=== PATIENT | male | born 1945 | race Caucasian/White ===

== ENCOUNTER 2022-05-19 09:20 | Inpatient (IN) ==
[2022-05-19] MEDS ORDERED: CHLOROTHIAZIDE SODIUM 250 MG in DEXTROSE 5% 50 ML IV STA (10:29)
--- NOTE | 2022-05-19 10:39 | XRay Report ---
XR chest 1V portable HISTORY: Weakness. Leg swelling. CHF exacerbation COMPARISON: Chest 06/20/2014. FINDINGS: No pneumothorax. There are low lung volumes. The cardiac silhouette remains mildly enlarged . There is a partially visualized left shoulder prosthesis. Advanced degenerative changes noted withi n the right shoulder. There is interval progression of the diffuse interstitial and vascular thickeni ng consistent with developing pulmonary edema. Suspect trace bilateral pleural effusions. Patchy dens ities at the left lung base are noted. IMPRESSION: 1. Cardiomegaly with mild pulmonary edema and trace bilateral pleural effusions. 2. Patchy left basilar densities are nonspecific and may represent atelectasis or pneumonia. ACT 112: Negative or not required by law. Electronically signed by: Dereck Troncoso M.D. 05/19/2022 10:37 AM
--- NOTE | 2022-05-19 10:49 | History & Physical Report ---
Date of Service May 19, 2022 Assessment & Plan (1) Chronic diastolic CHF (congestive heart failure): (2) Hypertension: (3) Dyslipidemia: (4) CAD (coronary artery disease): (5) DVT (deep venous thrombosis): (6) Anemia: (7) Leukocytosis: (8) Fungal infection of foot: Plan Mr. Leeroy Pickett is a 77 year old male who presented to the [facility] ED from home after discussion regarding admission at his outpatient Cardiology appointment yesterday (May 18) with Dr. Diaz. This individual has acute on chronic CHF and has not been clinically responding to his outpatient diuretic regimen as noted by his significant edema and weight gain. acute on chronic dystolic CHF with preserved EF: -Patient primarily seen as an outpatient. Had an appointment yesterday with Dr. Diaz and was noted to be hypervolemic. -+ 3 B/L LE edema -Last ECHO 02/18 EF 50%, mild MR/TR -mild pulmonary edema on CXR -Typical home regiment includes PO Bumex with intermittent PO Lasix in addition to that. -One time dose of Diuril IV 250 mg per [facility] recommendation -Bumex 4mg IV Once post Diuril infusion; followed by Bumex 4mg IV BID -Heart healthy diet with low Na+ -Check daily weights -Strict I/O; goal is 1-2L negative net fluid over next 24 hours. -Discussed with Dr. Santiago who agrees with above orders and is aware of consultation being placed. -Pt stated he would consider being evaluated and followed by the CHF clinic. Consider consult during this admission. Hypertension: -Continue Metoprolol with hold parameters Dyslipidemia: -Continue Atorvastatin CAD: -Previous OK DVT: -02/05/2021 admission at [facility] for PE/DVT -Eliquis started during that admission for chronic VTE prophylaxis Leukocytosis: -WBC: 11.91 -UA pending -no tachycardia or other signs of sepsis -Will obtain repeat CBC tomorrow with AM labs -CXR did reveal pulmonary effusions; likely fluid related. Fungal Infection of foot: -bilateral foot fungal infection. Continue prescribed Terbinafine 250mg PO daily which is scheduled to continue treatment through 06/23/22 Anemia: -Appears stable Current 11.3 Disposition: Pt PCP: Dr. Mcgill Full code as discussed with patient We will follow the patient during their hospital stay. Please contact the [facility] Hospitalist Team 23/05 via the hospitalist role on [place] [employer]. History of Present Illness Chief Complaint: Referred by [facility] cardiology Primary Care Provider: Elan Mcgill MD Mr. Leeroy Pickett is a 77 year old male who presented to the [facility] ED from home after discussion regarding admission at his outpatient Cardiology appointment yesterday (May 18) with Dr. Diaz. This individual has acute on chronic CHF and has not been clinically responding to his outpatient diuretic regimen as noted by his significant edema and weight gain. Per review of his medication list, he is on high-dose Bumex and PRN Lasix 20 mg on top of that. Additional PMH includes: CAD s/p AMI, ischemic cardiomyopathy, HTN, HLD, BPH, DVT/PE in 01/2021 where he was admitted at [facility] leading to initiation of Eliquis. His most recent ECHO revealed EF of 50-59% with mild MR/TR. Pt presenting today to move ahead with hospital admission. During my encounter, patient he was accompanied by his , Pratibha and his son as well. The patient is resting in his bed, sitting upright in no apparent distress. He denies ROWLAND, dizziness, SOB at rest, CP, palpitations, N/V/D, falls. The patient did indicate that while he does not feel winded at rest, he would be considerably short of breath walking from his bed to the door. A chest X-ray was obtained and results indicated: mild pulmonary edema and trace bilateral pleural effusions. The patient is also being treated for a bilateral foot fungal infection with Terbinafine 250mg PO daily and is scheduled to continue treatment through 06/23/22. The patient lives with his in a one story ranch house and per the patient and his he is able to perform IADL's. The patient will be admitted for IV diuresis and closer laboratory monitoring. Please see A/P for further details regarding his admission. Allergies Allergy/AdvReac Type Severity Reaction Status Date / Time No Known Drug Allergies Allergy Verified 05/18/22 11:20 Home Medications Medication Instructions Recorded Confirmed Type aspirin 81 mg tablet 81 mg PO DAILY 09/07/19 05/19/22 History metolazone 2.5 mg tablet 2.5 mg PO DAILY PRN weight gain, 01/06/21 05/19/22 Rx increased swelling, short of breath #15 tabs apixaban 5 mg tablet (Eliquis) 5 mg PO BID 02/17/21 05/19/22 History finasteride 5 mg tablet 5 mg PO QPM 03/03/21 05/19/22 History lactulose 10 gram/15 mL oral 15 ml PO BID 03/03/21 05/19/22 History solution lisinopril 5 mg tablet 5 mg PO DAILY #90 tabs 09/14/21 05/19/22 Rx tamsulosin 0.4 mg capsule (Flomax) 0.4 mg PO DAILY 10/09/21 05/19/22 History isosorbide mononitrate 30 mg 30 mg PO DAILY #90 tabs 12/24/21 05/19/22 Rx tablet,extended release 24 hr atorvastatin 40 mg tablet 40 mg PO DAILY #90 tabs 02/24/22 05/19/22 Rx metoprolol succinate 25 mg 25 mg PO DAILY #90 tabs 02/24/22 05/19/22 Rx tablet,extended release 24 hr potassium chloride 20 mEq 20 meq PO DAILY #90 tabs 05/07/22 05/19/22 Rx tablet,extended release allopurinol 300 mg tablet 300 mg PO DAILY 05/18/22 05/19/22 History bumetanide 2 mg tablet 4 mg PO BID 05/18/22 05/19/22 History terbinafine HCl 250 mg tablet 250 mg PO DAILY 05/18/22 05/19/22 History Past Med/Surg History Medical History (Updated 05/19/22 @ 13:19 by ANTHONY Wadsworth) Aortic insufficiency CAD (coronary artery disease) Chronic diastolic CHF (congestive heart failure) DVT (deep venous thrombosis) Dyslipidemia Fungal infection of foot Hypertension Ischemic cardiomyopathy Leukocytosis Pre-diabetes Pulmonary emboli Surgical History History of bilateral carpal tunnel release History of total replacement of left shoulder joint Hx of cardiac cath 1990s, no stents placed Hx of hernia repair Family History Mother , 82 Alzheimer disease Father , 90s Thoracic aneurysm, ruptured Brother Colorectal cancer Sister Colorectal cancer Social History Smoking Status: Former smoker packs per day: 1; Years Smoked: 20; Cigarettes Per Day: 20; Hx Alcohol Use: No Hx Substance Use: No Preferred Language: Maori Communication Ability: Effective marital status: current occupational status: retired Feels Safe at Home: Yes Review of Systems Review of Systems: Neuro: Denies ROWLAND, dizziness. HEENT: Denies visual and hearing changes, dysphagia CV: Denies chest pain, palpitations. + swelling Resp: Denies SOB at rest GI: Denies abdominal pain, N/V/D : (-) urinary changes Psych: (-) anxiety, depression Physical Exam Constitutional: well developed, + obese, cooperative and comfortable; no altered mental status ENMT: Ears: + hearing impairment (Uses hearing aids B/L) Nose: + dry nasal mucous membranes Respiratory: normal respiratory effort; does not use accessory muscles and no cough Auscultation: + diminished lung sounds Cardiovascular: Rate/Rhythm: regular rate and regular rhythm Heart Sounds: normal S1 and normal S2 Vessels: + JVD Extremities: + edema (B/L LE +3 ) Gastrointestinal (Abdomen): Inspection/Auscultation: abdomen normal to inspection, + abdomen distended and normal bowel sounds Skin: + erythema and + pallor Pt has fungal infection on his feet Psychiatric: Orientation: alert and oriented x 3 Insight: good insight Judgement: good judgement Genitourinary: no CVA tenderness Results & Data Results & Data ([facility]) Vital Signs (Past 12 Hours) Vital Signs Temp Pulse Resp BP Pulse Ox O2 Del Method 05/19/22 09:27 36.4 C L 89 20 127/70 95 Room Air Laboratory Results Impressions Chest X-Ray 05/19/22 10:01 XR chest 1V portable HISTORY: Weakness. Leg swelling. CHF exacerbation COMPARISON: Chest 06/20/2014. FINDINGS: No pneumothorax. There are low lung volumes. The cardiac silhouette remains mildly enlarged. There is a partially visualized left shoulder prosthesis. Advanced degenerative changes noted within the right shoulder. There is interval progression of the diffuse interstitial and vascular thickening consistent with developing pulmonary edema. Suspect trace bilateral pleural effusions. Patchy densities at the left lung base are noted. IMPRESSION: 1. Cardiomegaly with mild pulmonary edema and trace bilateral pleural effusions. 2. Patchy left basilar densities are nonspecific and may represent atelectasis or pneumonia. ACT 112: Negative or not required by law. Electronically signed by: Dereck Troncoso M.D. 05/19/2022 10:37 AM COVID-19 Results Results COVID-19 Adm Lab Results: RBC 4.01 M/uL (4.63-6.08) L 05/19/22 WBC 11.91 K/ul (4.8-10.8) H 05/19/22 Hgb 11.3 g/dl (14.0-18.0) L 05/19/22 Hct 34.5 % (40.1-51.0) L 05/19/22 Plt Count 288 K/uL (130-400) 05/19/22 Neutrophils (%) (Auto) 67.0 % 05/19/22 Lymphocytes (%) (Auto) 22.5 % 05/19/22 Monocytes # (Auto) 1.04 K/uL (0.24-0.82) H 05/19/22 Eosinophils # (Auto) 0.11 K/uL (0-0.50) 05/19/22 Immature Granulocyte % (Auto) 0.4 % 05/19/22 Neutrophils # (Auto) 7.97 K/uL (1.4-6.5) H 05/19/22 Lymphocytes # (Auto) 2.68 K/uL (1.2-3.4) 05/19/22 Monocytes # (Auto) 1.04 K/uL (0.24-0.82) H 05/19/22 Eosinophils # (Auto) 0.11 K/uL (0-0.50) 05/19/22 Basophils # (Auto) 0.06 K/uL (0-0.2) 05/19/22 Immature Granulocyte # (Auto) 0.05 K/uL (0.00-0.02) H 05/19 Na 135 mmol/L (136-145) L 05/19/22 K 4.3 mmol/L (3.5-5.1) 05/19/22 Cl 101 mmol/L (98-107) 05/19/22 CO2 28 mmol/L (21-32) 05/19/22 Anion Gap 6 (3-11) 05/19/22 BUN 22 mg/dl (6-23) 05/19/22 Creatinine 0.86 mg/dl (0.6-1.4) 05/19/22 BUN/Creatinine Ratio 25.6 (10-20) H 05/19/22 Glucose Level 112 mg/dl (70-99(Fasting)) H 05/19/22 Ca 8.7 mg/dl (8.5-10.1) 05/19/22 Total Bilirubin 0.6 mg/dl (0.2-1.0) 05/19/22 AST/SGOT 25 U/L (13-39) 05/19/22 ALT/SGPT 21 U/L (7-52) 05/19/22 Alkaline Phosphatase 101 U/L (34-104) 05/19/22 Total Protein 6.3 gm/dl (6.0-8.3) 05/19/22 Albumin 3.2 gm/dl (3.4-5.0) L 05/19/22 Globulin 3.1 gm/dl (2.5-4.0) 05/19/22 Albumin/Globulin Ratio 1.0 (0.9-2) 05/19/22 SARS-CoV-2, RNA, NAAT NEGATIVE (NEGATIVE) 05/19/22 Chest X-Ray 05/19/22 Code Status & VTE Plan Code Status Pt to remain Full Code after discussion with patient and family. Order reflected in computer. VTE Prophylaxis Plan VTE Prophylaxis will be ordered: Yes Supervising Physician Co-Signing Physician Notes And this is an attending cosign on her phone reports documentation please see the full dictation by CORNELIO following is a synopsis. Patient presenting after being sent by the patient's print graphic designer to receive IV diuretics. Patient with worsening fluid overload and shortness of breath with exertional activity. Currently denies any dyspnea at rest denies any chest pain palpitations fever chills nausea vomiting. Complains of worsening lower extremity edema. Denies any tingling sensation denies any pain otherwise. Head atraumatic chest diminished bilateral rate and rhythm. Abdomen soft patient obese. +2-3 lower extremity edema. IV diuretics I's and O's Daily weights.
[2022-05-19 11:16] LABS: Basophils # (auto) 0.06 K/uL (0-0.2); Basophils % (auto) 0.5 %; Eosinophils # (auto) 0.11 K/uL (0-0.50); Eosinophils % (auto) 0.9 %; Hematocrit (blood only) 34.5 % (40.1-51.0); Hemoglobin 11.3 g/dl (14.0-18.0); Immature Granulocytes # (auto) 0.05 K/uL (0.00-0.02); Immature Granulocytes % (auto) 0.4 %; Lymphocytes # (auto) 2.68 K/uL (1.2-3.4); Lymphocytes % (auto) 22.5 %; Mean Corpuscular Hemoglobin 28.2 pg (25.0-34.0); Mean Corpuscular Hgb Conc 32.8 g/dL (32.0-36.0); Mean Platelet Volume 8.9 fL (9.4-12.4); Monocytes # (auto) 1.04 K/uL (0.24-0.82); Monocytes % (auto) 8.7 %; Neutrophils # (auto) 7.97 K/uL (1.4-6.5); Platelet Count 288 K/uL (130-400); RDW Coefficient of Variation 17.2 % (11.5-14.5); Red Blood Count 4.01 M/uL (4.63-6.08); White Blood Count 11.91 K/ul (4.8-10.8)
[2022-05-19 11:48] LABS: Albumin Level 3.2 gm/dl (3.4-5.0); BUN Creatinine Ratio 25.6 (10-20); Bilirubin,Total 0.6 mg/dl (0.2-1.0); Calcium 8.7 mg/dl (8.5-10.1); Est GFR (African American) 95.6 ml/min; Est GFR (Non-African American) 82.5 ml/min; Globulin 3.1 gm/dl (2.5-4.0); Total Protein 6.3 gm/dl (6.0-8.3); Troponin I High Sensitivity 33.6 pg/ml (0-20)
[2022-05-19 12:00] LABS: Potassium 4.3 mmol/L (3.5-5.1)
--- NOTE | 2022-05-19 12:09 | Emergency Department Note ---
Impression & Plan Fluid overload, Chronic diastolic CHF (congestive heart failure), Acute dyspnea ED Provider Note CHIEF COMPLAINT: Fluid overload HISTORY OF PRESENT ILLNESS: This 77 yo male patient presents to the emergency department presents emergency department with complaints of fluid overload and weight gain. The patient was evaluated by his market research executive yesterday and noted to be about 40 pounds heavier than his dry weight by report. He was supposed to be admitted to the hospital yesterday but the hospital was on code flow. Patient states he has been can with his medications. He denies any recent fevers, chills, chest pain or shortness of breath while at rest. He notices shortness of breath primarily with any exertion. He is states he does sleep in a reclined position, but not flat in his bed. Patient is chronic anticoagulated secondary to a history of DVT/PE. REVIEW OF SYSTEMS: A review of systems was performed with positives and pertinent negatives listed in the history of present illness. 10 systems were reviewed and are otherwise negative. ALLERGIES: see below MEDICATIONS: see below PMH: see below SOCIAL HISTORY: see below DDx: Reactive airway disease, pneumonia, pneumothorax, COPD, CHF, infections, cardiac ischemia, pulmonary embolism, musculoskeletal, gastrointestinal, as well as other pathologies. PHYSICAL EXAM: Vital signs reviewed. General: Chronically ill-appearing 77-year-old male HEENT: No conjunctival injection or scleral icterus, PERRLA, neck supple. Moist mucous membranes Cardiovascular: Regular rate and rhythm, no extra sounds. Pulmonary: Clear to auscultation bilaterally, normal work of breathing. Abdomen: Soft, obese, nontender, nondistended, positive bowel sounds. Musculoskeletal: Atraumatic, 3-4+ pitting peripheral edema. Neurologic: Patient awake alert and oriented x 3, speech is clear Skin: Warm, dry, no rash EMERGENCY DEPARTMENT COURSE/MDM: Was evaluated and appeared to be in no significant distress. IV access was obtained and laboratory work done. The patient was placed on the cardiac technologist be likely in a sinus rhythm with a wide-complex which is new. Chest x-ray was performed and reveals pulmonary edema and cardiomegaly. She was medicated with Diuril as directed by cardiology. He will require hospitalization for diuresis with intravenous medications and cardiology consultation. Patient is aware of this plan and agrees. The hospitalist service has been consulted for admission and further management. The patient is aware of the plan and agrees. MONITORING: An order for cardiac monitoring was placed and the patient is noted to be in a sinus rhythm at 89 beats per minute. RADIOLOGY: See below EKG: Likely sinus rhythm with a wide QRS at 84 bpm. Left axis deviation and a right bundle branch block. Prolonged QTC at 522 with previous inferior lateral infarct. When compared to previous dated June 20, 2014, new right bundle branch block is noted DISPOSITION: Admission Past Med/Surg History Medical History Aortic insufficiency CAD (coronary artery disease) Chronic diastolic CHF (congestive heart failure) DVT (deep venous thrombosis) Dyslipidemia Fungal infection of foot Hypertension Ischemic cardiomyopathy Leukocytosis Pre-diabetes Pulmonary emboli Surgical History History of bilateral carpal tunnel release History of total replacement of left shoulder joint Hx of cardiac cath 1990s, no stents placed Hx of hernia repair Family History Mother , 82 Alzheimer disease Father , 90s Thoracic aneurysm, ruptured Brother Colorectal cancer Sister Colorectal cancer Social History Smoking Status: Never smoker packs per day: 1; Years Smoked: 20; Cigarettes Per Day: 20; Hx Alcohol Use: No Hx Substance Use: No Preferred Language: Nauruan Communication Ability: Effective Hardware Manager Required: No Beliefs That Will Affect Care: None marital status: Current Living Situation: Spouse Current Living Situation Comment: jenny current occupational status: retired How many Children do You have: 1 Feels Safe at Home: Yes Assistive Devices: Cane Allergies Allergies Allergy/AdvReac Type Severity Reaction Status Date / Time No Known Drug Allergies Allergy Verified 05/18/22 11:20 Home Meds Home Medications Medication Instructions Recorded Confirmed aspirin 81 mg tablet 81 mg PO DAILY 09/07/19 05/19/22 apixaban 5 mg tablet (Eliquis) 5 mg PO BID 02/17/21 05/19/22 finasteride 5 mg tablet 5 mg PO QPM 03/03/21 05/19/22 lactulose 10 gram/15 mL oral 15 ml PO BID 03/03/21 05/19/22 solution tamsulosin 0.4 mg capsule (Flomax) 0.4 mg PO DAILY 10/09/21 05/19/22 allopurinol 300 mg tablet 300 mg PO DAILY 05/18/22 05/19/22 bumetanide 2 mg tablet 4 mg PO BID 05/18/22 05/19/22 terbinafine HCl 250 mg tablet 250 mg PO DAILY 05/18/22 05/19/22 Previous Rx's Medication Instructions Recorded metolazone 2.5 mg tablet 2.5 mg PO DAILY PRN weight gain, 01/06/21 increased swelling, short of breath #15 tabs lisinopril 5 mg tablet 5 mg PO DAILY #90 tabs 09/14/21 isosorbide mononitrate 30 mg 30 mg PO DAILY #90 tabs 12/24/21 tablet,extended release 24 hr atorvastatin 40 mg tablet 40 mg PO DAILY #90 tabs 02/24/22 metoprolol succinate 25 mg 25 mg PO DAILY #90 tabs 02/24/22 tablet,extended release 24 hr potassium chloride 20 mEq 20 meq PO DAILY #90 tabs 05/07/22 tablet,extended release chlorothiazide 250 mg/5 mL oral 125 mg (2.5 mL) PO UD #237 mL 05/21/22 suspension (Diuril) Results & Data (ED) Vital Signs Vital Signs - 24 hr 05/19/22 09:27 05/19/22 11:22 Temperature 36.4 C L Temperature Source Oral Pulse Rate 89 Pulse Rate [Apical] 78 Respiratory Rate 20 18 Respiratory Effort / Characteristics Non-Labored Respiratory Depth Normal Blood Pressure 127/70 Blood Pressure [Right Arm] 113/62 Blood Pressure Mean 89 Blood Pressure Mean [Right Arm] 79 Blood Pressure Position [Right Arm] Lying Pulse Oximetry 95 96 Oxygen Delivery Method Room Air Room Air Sepsis Recent Fever Within 48 Hours No Sepsis New/Unexplained Change in Mental Status No Sepsis Action Taken by Nursing No Action Required Home Medications Current Medication List: was personally reviewed by me Laboratory Data Attestation: I reviewed the patient's lab results. Result diagrams: 05/21/22 07:22 05/21/22 10:21 Lab Results 05/19/22 05/19/22 05/19/22 Range/Units 10:55 10:55 10:55 WBC 11.91 H (4.8-10.8) K/ul RBC 4.01 L (4.63-6.08) M/uL Hgb 11.3 L (14.0-18.0) g/dl Hct 34.5 L (40.1-51.0) % MCV 86.0 (80.0-100.0) fL MCH 28.2 (25.0-34.0) pg MCHC 32.8 (32.0-36.0) g/dL RDW Std Deviation 52.0 H (36.4-46.3) fL RDW Coeff of Carroll 17.2 H (11.5-14.5) % Plt Count 288 (130-400) K/uL MPV 8.9 L (9.4-12.4) fL Immature Gran % (Auto) 0.4 % Neut % (Auto) 67.0 % Lymph % (Auto) 22.5 % [place] % (Auto) 8.7 % Eos % (Auto) 0.9 % Baso % (Auto) 0.5 % Neut # (Auto) 7.97 H (1.4-6.5) K/uL Lymph # (Auto) 2.68 (1.2-3.4) K/uL [place] # (Auto) 1.04 H (0.24-0.82) K/uL Eos # (Auto) 0.11 (0-0.50) K/uL Baso # (Auto) 0.06 (0-0.2) K/uL Immature Gran # (Auto) 0.05 H (0.00-0.02) K/uL Sodium 135 L (136-145) mmol/L Potassium 4.3 (3.5-5.1) mmol/L Chloride 101 (98-107) mmol/L Carbon Dioxide 28 (21-32) mmol/L Anion Gap 6 (3-11) BUN 22 (6-23) mg/dl Creatinine 0.86 (0.6-1.4) mg/dl Est Cr Clr Drug Dosing 97.0 ml/min Est GFR ( Amer) 95.6 ml/min Est GFR (Non-Af Amer) 82.5 ml/min BUN/Creatinine Ratio 25.6 H (10-20) Glucose 112 H (70-99(Fasting)) mg/dl Calcium 8.7 (8.5-10.1) mg/dl Total Bilirubin 0.6 (0.2-1.0) mg/dl AST 25 (13-39) U/L ALT 21 (7-52) U/L Alkaline Phosphatase 101 (34-104) U/L Troponin I High Sens 33.6 H (0-20) pg/ml B-Natriuretic Peptide 115 H (0-100) pg/ml Total Protein 6.3 (6.0-8.3) gm/dl Albumin 3.2 L (3.4-5.0) gm/dl Globulin 3.1 (2.5-4.0) gm/dl Albumin/Globulin Ratio 1.0 (0.9-2) SARS-CoV-2, RNA, NAAT (NEGATIVE) 05/19/22 Range/Units 11:26 WBC (4.8-10.8) K/ul RBC (4.63-6.08) M/uL Hgb (14.0-18.0) g/dl Hct (40.1-51.0) % MCV (80.0-100.0) fL MCH (25.0-34.0) pg MCHC (32.0-36.0) g/dL RDW Std Deviation (36.4-46.3) fL RDW Coeff of Carroll (11.5-14.5) % Plt Count (130-400) K/uL MPV (9.4-12.4) fL Immature Gran % (Auto) % Neut % (Auto) % Lymph % (Auto) % [place] % (Auto) % Eos % (Auto) % Baso % (Auto) % Neut # (Auto) (1.4-6.5) K/uL Lymph # (Auto) (1.2-3.4) K/uL [place] # (Auto) (0.24-0.82) K/uL Eos # (Auto) (0-0.50) K/uL Baso # (Auto) (0-0.2) K/uL Immature Gran # (Auto) (0.00-0.02) K/uL Sodium (136-145) mmol/L Potassium (3.5-5.1) mmol/L Chloride (98-107) mmol/L Carbon Dioxide (21-32) mmol/L Anion Gap (3-11) BUN (6-23) mg/dl Creatinine (0.6-1.4) mg/dl Est Cr Clr Drug Dosing ml/min Est GFR ( Amer) ml/min Est GFR (Non-Af Amer) ml/min BUN/Creatinine Ratio (10-20) Glucose (70-99(Fasting)) mg/dl Calcium (8.5-10.1) mg/dl Total Bilirubin (0.2-1.0) mg/dl AST (13-39) U/L ALT (7-52) U/L Alkaline Phosphatase (34-104) U/L Troponin I High Sens (0-20) pg/ml B-Natriuretic Peptide (0-100) pg/ml Total Protein (6.0-8.3) gm/dl Albumin (3.4-5.0) gm/dl Globulin (2.5-4.0) gm/dl Albumin/Globulin Ratio (0.9-2) SARS-CoV-2, RNA, NAAT NEGATIVE (NEGATIVE) Administered Medications Discontinued Medications Acetaminophen (Acetaminophen 325 Mg Tab) 650 mg PO Q4H PRN PRN Reason: Pain or Fever Stop: 06/18/22 13:07 Last Admin: 05/20/22 23:40 Dose: 650 mg Documented By: JENNIFER Allopurinol (Allopurinol 300 Mg Tab) 300 mg PO DAILY [facility] Stop: 06/19/22 08:59 Last Admin: 05/21/22 08:32 Dose: 300 mg Documented By: Admin: 05/20/22 09:55 Dose: 300 mg Documented By: Apixaban (Apixaban 5 Mg Tablet) 5 mg PO BID [facility] Stop: 06/18/22 20:59 Last Admin: 05/21/22 08:32 Dose: 5 mg Documented By: Admin: 05/20/22 20:03 Dose: 5 mg Documented By: Admin: 05/20/22 10:18 Dose: 5 mg Documented By: Admin: 05/19/22 21:46 Dose: 5 mg Documented By: JENNIFER Aspirin (Aspirin 81 Mg Ectab) 81 mg PO DAILY [facility] Stop: 06/19/22 08:59 Last Admin: 05/21/22 08:32 Dose: 81 mg Documented By: Admin: 05/20/22 09:56 Dose: 81 mg Documented By: Atorvastatin Calcium (Atorvastatin 40 Mg Tab) 40 mg PO DAILY [facility] Stop: 06/19/22 08:59 Last Admin: 05/21/22 08:33 Dose: 40 mg Documented By: Admin: 05/20/22 09:57 Dose: 40 mg Documented By: Finasteride (Finasteride 5 Mg Tab) 5 mg PO QPM ANTONI Stop: 06/18/22 21:19 Last Admin: 05/20/22 20:02 Dose: 5 mg Documented By: Admin: 05/19/22 21:46 Dose: 5 mg Documented By: JENNIFER Chlorothiazide Sodium 250 mg/ (Dextrose) 59 mls @ 200 mls/hr IV NOW STA Stop: 05/19/22 10:46 Last Infusion: 05/19/22 13:01 Dose: 0 mls/hr Documented By: Admin: 05/19/22 12:39 Dose: 200 mls/hr Documented By: GABBY Bumetanide 4 mg/ Syringe 16 mls @ 4 mls/min IV BID@0900,1700 ANTONI Stop: 06/18/22 16:59 Last Admin: 05/21/22 16:17 Dose: 4 mls/min Documented By: Admin: 05/21/22 08:32 Dose: 4 mls/min Documented By: Admin: 05/20/22 17:14 Dose: 4 mls/min Documented By: Admin: 05/20/22 08:57 Dose: 4 mls/min Documented By: Admin: 05/19/22 21:47 Dose: Not Given Documented By: JENNIFER Bumetanide 4 mg/ Syringe 16 mls @ 4 mls/min IV NOW STA Stop: 05/19/22 13:14 Last Admin: 05/19/22 14:00 Dose: 4 mls/min Documented By: SAÚL Chlorothiazide Sodium 250 mg/ (Dextrose) 59 mls @ 200 mls/hr IV QAM ANTONI Stop: 06/19/22 08:59 Last Infusion: 05/21/22 09:00 Dose: 0 mls/hr Documented By: Admin: 05/21/22 08:37 Dose: 200 mls/hr Documented By: Infusion: 05/20/22 09:59 Dose: 0 mls/hr Documented By: Admin: 05/20/22 09:10 Dose: 200 mls/hr Documented By: Isosorbide Mononitrate (Isosorbide [place] Extended Rel 30 Mg Tabcr) 30 mg PO DAILY ANTONI Stop: 06/19/22 08:59 Last Admin: 05/21/22 08:32 Dose: 30 mg Documented By: Admin: 05/20/22 09:55 Dose: 30 mg Documented By: Lisinopril (Lisinopril 5 Mg Tab) 5 mg PO DAILY ANTONI Stop: 06/19/22 08:59 Last Admin: 05/21/22 08:32 Dose: 5 mg Documented By: Admin: 05/20/22 09:55 Dose: 5 mg Documented By: Metoprolol Succinate (Metoprolol Succ 25mg Ext Rel Tab) 25 mg PO HS ANTONI Stop: 06/18/22 20:59 Last Admin: 05/20/22 20:02 Dose: 25 mg Documented By: Admin: 05/19/22 21:46 Dose: 25 mg Documented By: JENNIFER Polyethylene Glycol (Polyethylene (Miralax) 17 Gm Pack) 17 gm PO DAILY PRN PRN Reason: Constipation Stop: 06/18/22 13:07 Last Admin: 05/21/22 08:56 Dose: 17 gm Documented By: Admin: 05/20/22 10:12 Dose: 17 gm Documented By: Potassium Chloride (Potassium Chloride Crtab 20 Meq Tabcr) 20 meq PO DAILY ANTONI Stop: 06/19/22 08:59 Last Admin: 05/21/22 08:36 Dose: 20 meq Documented By: Admin: 05/20/22 09:56 Dose: 20 meq Documented By: Tamsulosin HCl (Tamsulosin Hcl 0.4 Mg Cap) 0.4 mg PO HS ANTONI Stop: 06/18/22 20:59 Last Admin: 05/20/22 20:02 Dose: 0.4 mg Documented By: Admin: 05/19/22 21:46 Dose: 0.4 mg Documented By: JENNIFER Terbinafine HCl (Terbinafine Hcl 250 Mg Tab) 250 mg PO DAILY ANTONI Stop: 06/19/22 08:59 Last Admin: 05/21/22 08:33 Dose: 250 mg Documented By: Admin: 05/20/22 09:55 Dose: 250 mg Documented By: Imaging Data Radiologist's Impression: Chest X-Ray 05/19/22 10:01 XR chest 1V portable HISTORY: Weakness. Leg swelling. CHF exacerbation COMPARISON: Chest 06/20/2014. FINDINGS: No pneumothorax. There are low lung volumes. The cardiac silhouette remains mildly enlarged. There is a partially visualized left shoulder prosthesis. Advanced degenerative changes noted within the right shoulder. There is interval progression of the diffuse interstitial and vascular thickening consistent with developing pulmonary edema. Suspect trace bilateral pleural effusions. Patchy densities at the left lung base are noted. IMPRESSION: 1. Cardiomegaly with mild pulmonary edema and trace bilateral pleural effusions. 2. Patchy left basilar densities are nonspecific and may represent atelectasis or pneumonia. ACT 112: Negative or not required by law. Electronically signed by: Dereck Troncoso M.D. 05/19/2022 10:37 AM Blood Pressure Blood Pressure Findings: Elevated blood pressure Blood Pressure Disposition: further management by hospitalist Discharge Plan Visit Data Chief Complaint: Referred by Doctor Stated Complaint: FLUID THROUGH BODY, REF BY ED Provider: Paola Slaughter ED Midlevel Provider: Macarena Garrison Discharge Problem: Fluid overload, Chronic diastolic CHF (congestive heart failure), Acute dyspnea Patient Disposition: Admitted As Inpatient Discharge Instructions Interventions: ED Discharge Assessment Last Done: 05/19/22 13:35
[2022-05-19] MEDS ORDERED: MAGNESIUM HYDROXIDE SUSP 30 ML UDC PO PRN (13:08)
[2022-05-19] MEDS ORDERED: ACETAMINOPHEN 325 MG TAB PO PRN (13:08)
[2022-05-19] MEDS ORDERED: ALUMINUM/MAGNESIUM SUSP 30 ML UDC PO PRN (13:08)
[2022-05-19] MEDS ORDERED: ONDANSETRON INJ 2 MG/ML 2 ML VIAL IV PRN (13:08)
[2022-05-19] MEDS ORDERED: BUMETANIDE 4 MG in SYRINGE 0 ML IV STA (13:11)
[2022-05-19 14:48] LABS: Appearance Urine Clear (Clear); Bacteria Urine Automated Negative (Negative); Bilirubin Urine Negative (Negative); Blood Urine Negative (Negative); Color Urine Yellow; Glucose Urine UA Negative (Negative); Ketones Urine Negative (Negative); Leukocyte Esterase Urine Trace (Negative); Nitrite Urine Negative (Negative); Protein Urine Negative (Negative); RBC Urine Automated 0-4 /hpf (0-4); Specific Gravity Urine 1.007 (1.000-1.030); Urobilinogen Urine Negative (Negative); pH Urine 8.5 (4.5-7.5)
--- NOTE | 2022-05-19 16:49 | Electrocardiogram Report ---
Test Reason : Blood Pressure : / mmHG Vent. Rate : 084 BPM Atrial Rate : 045 BPM P-R Int : 000 ms QRS Dur : 146 ms QT Int : 442 ms P-R-T Axes : 000 -56 066 degrees QTc Int : 522 ms Poor data quality, interpretation may be adversely affected Wide QRS rhythm Left axis deviation Right bundle branch block Possible Lateral infarct , age undetermined Inferior infarct , age undetermined Abnormal ECG When compared with ECG of 20-JUN-2014 16:18, Wide QRS rhythm has replaced Sinus rhythm Confirmed by Martin Santiago ([id number]) on 05/19/2022 4:49:28 PM Referred By: Confirmed By:Martin Santiago
[2022-05-19] MEDS: FINASTERIDE 5 MG TAB PO SCH (21:46)
[2022-05-19] MEDS: TAMSULOSIN HCL 0.4 MG CAP PO SCH (21:46)
[2022-05-19] MEDS: APIXABAN 5 MG TABLET PO SCH (21:46)
[2022-05-19] MEDS: METOPROLOL SUCC 25MG EXT REL TAB PO SCH (21:46)
[2022-05-19] MEDS: BUMETANIDE 4 MG in SYRINGE 0 ML IV SCH (21:47)
[2022-05-20 06:48] LABS: Basophils # (auto) 0.07 K/uL (0-0.2); Basophils % (auto) 0.6 %; Eosinophils # (auto) 0.17 K/uL (0-0.50); Eosinophils % (auto) 1.4 %; Hematocrit (blood only) 38.5 % (40.1-51.0); Hemoglobin 12.8 g/dl (14.0-18.0); Immature Granulocytes # (auto) 0.04 K/uL (0.00-0.02); Immature Granulocytes % (auto) 0.3 %; Lymphocytes % (auto) 23.5 %; Mean Corpuscular Hemoglobin 28.3 pg (25.0-34.0); Mean Corpuscular Hgb Conc 33.2 g/dL (32.0-36.0); Mean Corpuscular Volume 85.2 fL (80.0-100.0); Mean Platelet Volume 9.1 fL (9.4-12.4); Monocytes # (auto) 1.01 K/uL (0.24-0.82); Monocytes % (auto) 8.5 %; Neutrophils # (auto) 7.84 K/uL (1.4-6.5); Neutrophils % (auto) 65.7 %; Platelet Count 321 K/uL (130-400); RDW Coefficient of Variation 17.2 % (11.5-14.5); RDW Standard Deviation 52.4 fL (36.4-46.3); Red Blood Count 4.52 M/uL (4.63-6.08); White Blood Count 11.93 K/ul (4.8-10.8)
[2022-05-20 07:22] LABS: BUN Creatinine Ratio 21.8 (10-20); Calcium 8.9 mg/dl (8.5-10.1); Creatinine Clr Calc Pharmacy 82.6 ml/min; Est GFR (African American) 81.6 ml/min; Est GFR (Non-African American) 70.4 ml/min; Magnesium 2.2 mg/dl (1.7-2.4); Potassium 3.8 mmol/L (3.5-5.1)
[2022-05-20] MEDS: BUMETANIDE 4 MG in SYRINGE 0 ML IV SCH ×2 (08:57→17:14)
[2022-05-20] MEDS ORDERED: TAMSULOSIN HCL 0.4 MG CAP PO SCH (09:00)
[2022-05-20] MEDS: CHLOROTHIAZIDE SODIUM 250 MG in DEXTROSE 5% 50 ML IV SCH (09:10)
[2022-05-20] MEDS: allopurinoL 300 MG TAB PO SCH (09:55)
[2022-05-20] MEDS: lisinopril 5 MG TAB PO SCH (09:55)
[2022-05-20] MEDS: ISOSORBIDE MONO EXTENDED REL 30 MG TABCR PO SCH (09:55)
[2022-05-20] MEDS: terbinafine HCL 250 MG TAB PO SCH (09:55)
[2022-05-20] MEDS: ASPIRIN 81 MG ECTAB PO SCH (09:56)
[2022-05-20] MEDS: POTASSIUM CHLORIDE CRTAB 20 MEQ TABCR PO SCH (09:56)
[2022-05-20] MEDS: ATORVASTATIN 40 MG TAB PO SCH (09:57)
[2022-05-20] MEDS: POLYETHYLENE (MIRALAX) 17 GM PACK PO PRN (10:12)
[2022-05-20] MEDS: APIXABAN 5 MG TABLET PO SCH ×2 (10:18→20:03)
--- NOTE | 2022-05-20 12:54 | Hospitalist Progress Note ---
Date of Service May 20, 2022 Assessment & Plan (1) Chronic diastolic CHF (congestive heart failure): (2) Hypertension: (3) Dyslipidemia: (4) CAD (coronary artery disease): (5) DVT (deep venous thrombosis): (6) Anemia: (7) Leukocytosis: (8) Fungal infection of foot: Plan per admitting service notes with addendum: Mr. Leeroy Pickett is a 77 year old male who presented to the [facility] ED from home after discussion regarding admission at his outpatient Cardiology ap pointment yesterday (May 18) with Dr. Diaz. This individual has acute on chronic CHF and has not been clinically responding to his outpatient diuretic regimen as noted by his significant edema and weight gain. acute on chronic dystolic CHF with preserved EF: -Patient primarily seen as an outpatient. Had an appointment yesterday with Dr. Diaz and was noted to be hypervolemic. -+ 3 B/L LE edema -Last ECHO 02/18 EF 50%, mild MR/TR -mild pulmonary edema on CXR -Typical home regiment includes PO Bumex with intermittent PO Lasix in addition to that. -One time dose of Diuril IV 250 mg per OPT Cards recommendation -Bumex 4mg IV Once post Diuril infusion; followed by Bumex 4mg IV BID -Heart healthy diet with low Na+ -Check daily weights -Strict I/O; goal is 1-2L negative net fluid over next 24 hours. -Discussed with Dr. Santiago who agrees with above orders and is aware of consultation being placed. -Pt stated he would consider being evaluated and followed by the CHF clinic. Consider consult during this admission. 05/20: no shortness of breath on room air still has grade 2 lower extremity edema continue Bumex 4mg IV BID Cholorothiazide 250mg IV daily added appreciate Cardiology service input monitor renal function Hypertension: -Continue Metoprolol with hold parameters Dyslipidemia: -Continue Atorvastatin CAD: -Previous PA DVT: -02/05/2021 admission at [facility] for PE/DVT -Eliquis started during that admission for chronic VTE prophylaxis Leukocytosis: -WBC: 11.91 -UA pending -no tachycardia or other signs of sepsis -Will obtain repeat CBC tomorrow with AM labs -CXR did reveal pulmonary effusions; likely fluid related. 05/20: leukocytosis remains at 11 afebrile CXR: questionable left lower lobe pneumonia vs. atelectasis- patient denies cough UA: no UTI monitor for now add procalcitonin Fungal Infection of foot: -bilateral foot fungal infection. Continue prescribed Terbinafine 250mg PO daily which is scheduled to continue treatment through 06/23/22 Anemia: -Appears stable Current 11.3 --> 12.8 Disposition: Pt PCP: Dr. Mcgill Full code as discussed with patient anticipate d/c home with home health services when medically stable plan of care discussed with patient in detail and at length all questions answered he is understanding, agreeable, comfortable with the plan of care Admission and Anticipated Discharge Date Admission Date: May 19, 2022 Subjective ff up for acute on chronic CHF, etc seen resting in bed, comfortable states he feels improved compared to yesterday no chest pain, dyspnea, palpitations, dizziness no leg pain no other symptoms Review of Systems Review of Systems: all noted and negative except for above Physical Exam Physical Exam: General- oriented x 3, not in distress, speaks in sentences with no effort or accessory muscle use Eyes- anicteric Neck- no JVD Lungs- clear breath sounds bilaterally, no rales/wheezes Heart- normal rate, regular rhythm; no murmurs Abdomen- normal bowel sounds, nondistended, soft, nontender Extremities- grade 2 lower leg edema, no calf tenderness Neuro- alert, oriented x 2; no gross focal neurologic deficits Skin- warm & dry Results & Data Results & Data ([facility]) Vital Signs (Past 12 Hours) Vital Signs Temp Pulse Pulse Resp BP Pulse Ox O2 Del Method 05/20/22 11:43 36.5 C 77 18 110/64 96 Room Air 05/20/22 08:30 Room Air 05/20/22 07:52 36.7 C 73 20 123/68 94 Room Air 05/20/22 07:27 77 05/20/22 03:51 36.8 C 80 18 112/68 94 Room Air all noted and reviewed including below
--- NOTE | 2022-05-20 16:34 | Cardiology Consultation ---
Date of Consultation May 20, 2022 Assessment & Plan (1) Acute on chronic heart failure with preserved ejection fraction (HFpEF): (2) CAD (coronary artery disease): (3) Ischemic cardiomyopathy: (4) Hypertension: (5) Dyslipidemia: (6) Mitral regurgitation: (7) Aortic insufficiency: Plan ASSESSMENT/PLAN: 1. Acute on chronic heart failure with preserved EF: He appears hypervolemic. Discussed with nursing staff measurements of urine output and appears to be diuresing well on Bumex 4 mg IV twice daily and diarrheal 250 mg IV once daily. Continue current regimen with goal of net negative fluid balance near 2 L per day if tolerated. Low-sodium diet, less than 2000 mg daily. Strict I&Os. Daily weights. He has not been interested in Heart failure program. Corina Leonor attempted to discuss the program with him today. Could consider SGLT 2 inhibitor. 2. CAD s/p prior HI: No angina. Carvedilol reduced in the past due to symptomatic hypotension. Tolerating low-dose metoprolol succinate. Continue low-dose KENISHA-inhibitor. Continue high-intensity statin therapy. 3. Ischemic cardiomyopathy: Low-normal LV systolic function but evidence of inferior/inferoseptal/inferolateral wall motion abnormalities which have been noted on previous imaging as well. 4. Hypertension: Blood pressure mostly normal. Continue current regimen. Has had symptomatic hypotension in the past which required reduction in carvedilol and KENISHA-inhibitor and eventually replace carvedilol with low-dose metoprolol. 5. Dyslipidemia: LDL has been well controlled. Continue high-intensity statin therapy. 6. Aortic and mitral regurgitation: Remain mild. Can monitor as an outpatient. 7. Disposition: Cardiology will continue to follow. Patient care communicated with primary hospitalist service, Dr. Hughes. Thank you for allowing me to participate in the care of your patient. Please call for any other questions or concerns. Sincerely, Ar Diaz M.D. History of Present Illness Reason for Consultation: CHF Requesting Physician: ANTHONY Hidalgo Attending Physician: Adrien Hughes MD History of Present Illness Mr. Pickett is a pleasant 77 yo gentleman with a history significant for CAD status post acute inferior wall HI in 1994 treated with medical therapy, ischemic cardiomyopathy, diastolic CHF, hypertension, and hyperlipidemia. He was diagnosed with left lower extremity DVT and bilateral pulmonary emboli during [facility] hospitalization on 02/05/2021. He had an HI in 1994-. His symptom was bilateral arm pain. He underwent a cardiac catheterization which is unavailable. Medical management was instituted. He has had the following cardiac studies: 1. Echo 02/09/10: Normal LV size with moderately reduced systolic function; EF 40-45%; severely hypokinetic to akinetic proximal inferior wall, proximal posterior wall, and proximal inferior septum. Mild to moderate LVH. Type I diastolic dysfunction. Mild AI. RVSP 31 mmHg. Aortic root 4 cm. 2. Stress echo 09/17/09: Negative for ischemia at 103% MPHR. Old HI as noted above. Exercised 6 minutes on Deepak protocol. No chest pain. 3. Echo 12/21/11: Normal LV size with mildly reduced systolic function. EF 50%. Inferior and posterior mi are hypokinetic. Wall motion analysis limited by quality of study. Mild LVH. Mild biatrial dilation. Mild to moderate AI. Mild MR. 4. Dobutamine stress echo 07/09/14: Negative at 87% MPHR. Resting EF 45-50%. Inferior and posterior hypokinesis. Mild AI. Mild MR. 5. Echo 03/24/2018: Mildly dilated LV with normal systolic function. Estimated EF 55%. Akinesis of the basal inferior and basal inferolateral wall segments. Hypokinesis of the inferoseptal base, mid inferior, and mid inferolateral wall segments. No LVH. No significant diastolic dysfunction. Mild biatrial dilation. Sclerotic aortic valve with mild AI. Mild MR. Normal RVSP. 6. Echo 09/16/2020 [facility]: LV EF 55%. Moderately dilated RV with mildly reduced systolic function. Mild AI. Moderate left atrial dilation. RVSP 55. 7. Echo 02/06/2021 [facility]: Normal left ventricular size, wall motion, systolic function. EF 55-59%. Mildly dilated RV with mildly reduced systolic function. Moderate left atrial dilation. Mild MR. Mild AI. RVSP 46. He was admitted on 05/19/2022 for CHF. Yesterday, he received Diuril 250 mg IV x1 in Bumex 4 mg IV. Unfortunately, urine output was not measured. He was seen this morning in his hospital room and he had not noted any significant improvement thus far but admitted that he has not been ambulating much. He continues to have lower extremity edema. He has dyspnea with exertion leading up to his hospitalization. He denies chest pain, syncope, near-syncope, palpitations, or bleeding such as melena, hematochezia, or hematuria. He admits that he had significant urine output yesterday. He was seen briefly a gain this afternoon and admits that he is urinating more than usual again today with current diuretic regimen. Review of systems:As above. Family history: No known premature CAD. Social history:Quit smoking many years ago. Rare alcohol. No drugs. and lives with his . Two children but lost 1 to an accident. 2 grandchildren (grandson and granddaughter). Retired. He enjoys hunting. He was alone in his hospital room. Allergies Allergy/AdvReac Type Severity Reaction Status Date / Time No Known Drug Allergies Allergy Verified 05/18/22 11:20 Home Medications Medication Instructions Recorded Confirmed Type aspirin 81 mg tablet 81 mg PO DAILY 09/07/19 05/19/22 History metolazone 2.5 mg tablet 2.5 mg PO DAILY PRN weight gain, 01/06/21 05/19/22 Rx increased swelling, short of breath #15 tabs apixaban 5 mg tablet (Eliquis) 5 mg PO BID 02/17/21 05/19/22 History finasteride 5 mg tablet 5 mg PO QPM 03/03/21 05/19/22 History lactulose 10 gram/15 mL oral 15 ml PO BID 03/03/21 05/19/22 History solution lisinopril 5 mg tablet 5 mg PO DAILY #90 tabs 09/14/21 05/19/22 Rx tamsulosin 0.4 mg capsule (Flomax) 0.4 mg PO DAILY 10/09/21 05/19/22 History isosorbide mononitrate 30 mg 30 mg PO DAILY #90 tabs 12/24/21 05/19/22 Rx tablet,extended release 24 hr atorvastatin 40 mg tablet 40 mg PO DAILY #90 tabs 02/24/22 05/19/22 Rx metoprolol succinate 25 mg 25 mg PO DAILY #90 tabs 02/24/22 05/19/22 Rx tablet,extended release 24 hr potassium chloride 20 mEq 20 meq PO DAILY #90 tabs 05/07/22 05/19/22 Rx tablet,extended release allopurinol 300 mg tablet 300 mg PO DAILY 05/18/22 05/19/22 History bumetanide 2 mg tablet 4 mg PO BID 05/18/22 05/19/22 History terbinafine HCl 250 mg tablet 250 mg PO DAILY 05/18/22 05/19/22 History Patient History Medical History Aortic insufficiency CAD (coronary artery disease) Chronic diastolic CHF (congestive heart failure) DVT (deep venous thrombosis) Dyslipidemia Fungal infection of foot Hypertension Ischemic cardiomyopathy Leukocytosis Pre-diabetes Pulmonary emboli Surgical History History of bilateral carpal tunnel release History of total replacement of left shoulder joint Hx of cardiac cath 1990s, no stents placed Hx of hernia repair Family History Mother , 82 Alzheimer disease Father , 90s Thoracic aneurysm, ruptured Brother Colorectal cancer Sister Colorectal cancer Social History Smoking Status: Never smoker packs per day: 1; Years Smoked: 20; Cigarettes Per Day: 20; Hx Alcohol Use: No Hx Substance Use: No Preferred Language: Luxembourgish Communication Ability: Effective Assistant Athletic Trainer Required: No Beliefs That Will Affect Care: None marital status: Current Living Situation: Spouse Current Living Situation Comment: ranch current occupational status: retired How many Children do You have: 1 Feels Safe at Home: Yes Safety Concerns: Feels Safe At This Time Assistive Devices: Cane Physical Exam Physical Exam: Gen.: No acute distress. Alert and oriented. HEENT: Anicteric sclera. Neck: Thick neck. Elevated JVD. Hepatic jugular reflux noted. No audible bruit. Normal carotid upstrokes bilaterally. Cardiac: PMI was nonpalpable. No ventricular heave. Regular. No ectopy. Normal S1-S2. No audible murmur. No rubs or gallops. Pulmonary: Bibasilar rales (chronic and stable). Abdomen: Obese. Soft, nontender, nondistended, with normoactive bowel sounds. No bruits noted. Extremities: 1+ right radial pulse. 2+ left radial pulse. 2+ posterior tibialis pulses bilaterally. 2-3+ bilateral lower extremity edema to the knees and trace bilateral lower extremity edema above the knees. No cyanosis. Psychiatric: Affect appears appropriate. Results & Data ([facility]) Vital Signs (Past 12 Hours) Vital Signs Temp Pulse Pulse Resp BP Pulse Ox O2 Del Method 05/20/22 15:16 79 05/20/22 11:43 36.5 C 77 18 110/64 96 Room Air 05/20/22 08:30 Room Air 05/20/22 07:52 36.7 C 73 20 123/68 94 Room Air 05/20/22 07:27 77 Intake & Output 05/18/22 05/19/22 05/20/22 05/21/22 06:59 06:59 06:59 06:59 Intake Total 109 / 109 409 / 409 Output Total 400 / 400 1600 / 1600 Balance -291 / -291 -1191 / -1191 Weight 293 lb 6.964 oz Laboratory Results Laboratory Results - last 24 hr 05/20/22 05/20/22 06:22 06:22 WBC 11.93 H RBC 4.52 L Hgb 12.8 L Hct 38.5 L MCV 85.2 MCH 28.3 MCHC 33.2 RDW Std Deviation 52.4 H RDW Coeff of [place] 17.2 H Plt Count 321 MPV 9.1 L Immature Gran % (Auto) 0.3 Neut % (Auto) 65.7 Lymph % (Auto) 23.5 [place] % (Auto) 8.5 Eos % (Auto) 1.4 Baso % (Auto) 0.6 Neut # (Auto) 7.84 H Lymph # (Auto) 2.80 [place] # (Auto) 1.01 H Eos # (Auto) 0.17 Baso # (Auto) 0.07 Immature Gran # (Auto) 0.04 H Sodium 138 Potassium 3.8 Chloride 102 Carbon Dioxide 27 Anion Gap 9 BUN 22 Creatinine 1.01 Est Cr Clr Drug Dosing 82.6 Est GFR ( Amer) 81.6 Est GFR (Non-Af Amer) 70.4 BUN/Creatinine Ratio 21.8 H Glucose 95 Calcium 8.9 Magnesium 2.2 Diagnostic Findings Telemetry personally reviewed: Sinus rhythm. No arrhythmia. ECG personally reviewed 05/19/2022: Sinus rhythm first-degree AV block 84 beats per minute. RBBB. Chest x-ray 05/20/2022: Diffuse interstitial and vascular thickening. Trace bilateral pleural effusions. Patchy left basilar densities may represent atelectasis versus pneumonia per Radiology. Echo 05/20/2022: Low-normal LV systolic function. severe hypokinesis to akinesis of the inferolateral wall with hypokinesis of the basal inferior and basal inferoseptal wall segments. Mildly reduced RV systolic function. Biatrial dilation. Sclerotic aortic valve with mild regurgitation. Mild MR. Medications Administered Current Inpatient Medications Acetaminophen (Acetaminophen 325 Mg Tab) 650 mg PO Q4H PRN PRN Reason: Pain or Fever Stop: 06/18/22 13:07 Al Hydrox/Mg Hydrox/Simethicone (Aluminum/Magnesium Susp 30 Ml Udc) 15 ml PO Q4H PRN PRN Reason: Dyspepsia Stop: 06/18/22 13:07 Allopurinol (Allopurinol 300 Mg Tab) 300 mg PO DAILY ANTONI Stop: 06/19/22 08:59 Last Admin: 05/20/22 09:55 Dose: 300 mg Apixaban (Apixaban 5 Mg Tablet) 5 mg PO BID ANTONI Stop: 06/18/22 20:59 Last Admin: 05/20/22 10:18 Dose: 5 mg Aspirin (Aspirin 81 Mg Ectab) 81 mg PO DAILY ANTONI Stop: 06/19/22 08:59 Last Admin: 05/20/22 09:56 Dose: 81 mg Atorvastatin Calcium (Atorvastatin 40 Mg Tab) 40 mg PO DAILY ANTONI Stop: 06/19/22 08:59 Last Admin: 05/20/22 09:57 Dose: 40 mg Finasteride (Finasteride 5 Mg Tab) 5 mg PO QPM ANTONI Stop: 06/18/22 21:19 Last Admin: 05/19/22 21:46 Dose: 5 mg Bumetanide 4 mg/ Syringe 16 mls @ 4 mls/min IV BID@0900,1700 ANTONI Stop: 06/18/22 16:59 Last Admin: 05/20/22 08:57 Dose: 4 mls/min Chlorothiazide Sodium 250 mg/ (Dextrose) 59 mls @ 200 mls/hr IV QAM ANTONI Stop: 06/19/22 08:59 Last Infusion: 05/20/22 09:59 Dose: Infused Isosorbide Mononitrate (Isosorbide [place] Extended Rel 30 Mg Tabcr) 30 mg PO DAILY ANTONI Stop: 06/19/22 08:59 Last Admin: 05/20/22 09:55 Dose: 30 mg Lisinopril (Lisinopril 5 Mg Tab) 5 mg PO DAILY ANTONI Stop: 06/19/22 08:59 Last Admin: 05/20/22 09:55 Dose: 5 mg Magnesium Hydroxide (Magnesium Hydroxide Susp 30 Ml Udc) 30 ml PO Q12H PRN PRN Reason: Constipation Stop: 06/18/22 13:07 Metoprolol Succinate (Metoprolol Succ 25mg Ext Rel Tab) 25 mg PO HS ANTONI Stop: 06/18/22 20:59 Last Admin: 05/19/22 21:46 Dose: 25 mg Ondansetron HCl (Ondansetron Inj 2 Mg/Ml 2 Ml Vial) 4 mg IV Q6H PRN PRN Reason: Nausea Stop: 06/18/22 13:07 Polyethylene Glycol (Polyethylene (Miralax) 17 Gm Pack) 17 gm PO DAILY PRN PRN Reason: Constipation Stop: 06/18/22 13:07 Last Admin: 05/20/22 10:12 Dose: 17 gm Potassium Chloride (Potassium Chloride Crtab 20 Meq Tabcr) 20 meq PO DAILY ANTONI Stop: 06/19/22 08:59 Last Admin: 05/20/22 09:56 Dose: 20 meq Tamsulosin HCl (Tamsulosin Hcl 0.4 Mg Cap) 0.4 mg PO HS [facility] Stop: 06/18/22 20:59 Last Admin: 05/19/22 21:46 Dose: 0.4 mg Terbinafine HCl (Terbinafine Hcl 250 Mg Tab) 250 mg PO DAILY [facility] Stop: 06/19/22 08:59 Last Admin: 05/20/22 09:55 Dose: 250 mg PG Care Time/CCT Total # of Minutes Spent Total Time Spent with Patient: Total time spent is greater than 50% in coordination of care (as documented) at patient's floor/unit and/or counseling patient: Coding Level of Care Code 99066 Initial Inpt Care Lvl 3 Diagnoses Acute on chronic heart failure with preserved ejection fraction (HFpEF) I50.33 CAD (coronary artery disease) I25.10 Ischemic cardiomyopathy I25.5 Hypertension I10 Dyslipidemia E78.5 Mitral regurgitation I34.0 Aortic insufficiency I35.1
--- NOTE | 2022-05-20 16:58 | XCELERA ---
[id number]
[2022-05-20] MEDS: FINASTERIDE 5 MG TAB PO SCH (20:02)
[2022-05-20] MEDS: TAMSULOSIN HCL 0.4 MG CAP PO SCH (20:02)
[2022-05-20] MEDS: METOPROLOL SUCC 25MG EXT REL TAB PO SCH (20:02)
[2022-05-21 08:02] LABS: Basophils # (auto) 0.07 K/uL (0-0.2); Basophils % (auto) 0.4 %; Eosinophils # (auto) 0.13 K/uL (0-0.50); Eosinophils % (auto) 0.8 %; Hematocrit (blood only) 39.6 % (40.1-51.0); Hemoglobin 12.8 g/dl (14.0-18.0); Immature Granulocytes # (auto) 0.07 K/uL (0.00-0.02); Immature Granulocytes % (auto) 0.4 %; Lymphocytes # (auto) 3.27 K/uL (1.2-3.4); Lymphocytes % (auto) 20.5 %; Mean Corpuscular Hemoglobin 28.3 pg (25.0-34.0); Mean Corpuscular Hgb Conc 32.3 g/dL (32.0-36.0); Mean Corpuscular Volume 87.6 fL (80.0-100.0); Mean Platelet Volume 9.3 fL (9.4-12.4); Monocytes # (auto) 1.69 K/uL (0.24-0.82); Monocytes % (auto) 10.6 %; Neutrophils # (auto) 10.76 K/uL (1.4-6.5); Neutrophils % (auto) 67.3 %; Platelet Count 321 K/uL (130-400); RDW Coefficient of Variation 17.7 % (11.5-14.5); RDW Standard Deviation 54.8 fL (36.4-46.3); Red Blood Count 4.52 M/uL (4.63-6.08); White Blood Count 15.99 K/ul (4.8-10.8)
[2022-05-21] MEDS: APIXABAN 5 MG TABLET PO SCH (08:32)
[2022-05-21] MEDS: lisinopril 5 MG TAB PO SCH (08:32)
[2022-05-21] MEDS: allopurinoL 300 MG TAB PO SCH (08:32)
[2022-05-21] MEDS: ASPIRIN 81 MG ECTAB PO SCH (08:32)
[2022-05-21] MEDS: ISOSORBIDE MONO EXTENDED REL 30 MG TABCR PO SCH (08:32)
[2022-05-21] MEDS: BUMETANIDE 4 MG in SYRINGE 0 ML IV SCH ×2 (08:32→16:17)
[2022-05-21] MEDS: terbinafine HCL 250 MG TAB PO SCH (08:33)
[2022-05-21] MEDS: ATORVASTATIN 40 MG TAB PO SCH (08:33)
[2022-05-21] MEDS: POTASSIUM CHLORIDE CRTAB 20 MEQ TABCR PO SCH (08:36)
[2022-05-21] MEDS: CHLOROTHIAZIDE SODIUM 250 MG in DEXTROSE 5% 50 ML IV SCH (08:37)
[2022-05-21 08:40] LABS: Blood Urea Nitrogen 35 mg/dl (6-23); Calcium 9.2 mg/dl (8.5-10.1); Carbon Dioxide 29 mmol/L (21-32); Chloride 99 mmol/L (98-107); Creatinine Clr Calc Pharmacy 65.1 ml/min; Est GFR (African American) 63.1 ml/min; Est GFR (Non-African American) 54.4 ml/min; Glucose 102 mg/dl (70-99(Fasting))
[2022-05-21] MEDS: POLYETHYLENE (MIRALAX) 17 GM PACK PO PRN (08:56)
--- NOTE | 2022-05-21 09:20 | Cardiology Progress Note ---
Date of Service May 21, 2022 Assessment & Plan (1) Acute on chronic heart failure with preserved ejection fraction (HFpEF): (2) CAD (coronary artery disease): (3) Ischemic cardiomyopathy: (4) Hypertension: (5) Dyslipidemia: (6) Mitral regurgitation: (7) Aortic insufficiency: Plan ASSESSMENT/PLAN: 1. Acute on chronic heart failure with preserved EF: Still hypervolemic but improved from presentation. He is adamant about going home today. He was agreeable to receive intravenous diuretics today. BUN should thing upward. On discharge, would recommend Bumex 4 mg p.o. b.i.d. which was his home dose. Can add Diuril 125 mg p.o. 3 days per week in addition. Close follow-up and recommend BMP next week. Low-sodium diet, less than 2000 mg daily. Strict I&Os. Daily weights. He has declined heart failure program. 2. CAD s/p prior RI: No angina. Carvedilol reduced in the past due to symptomatic hypotension. Tolerating low-dose metoprolol succinate. Continue low-dose KENISHA-inhibitor. Continue high-intensity statin therapy. 3. Ischemic cardiomyopathy: Low-normal LV systolic function but evidence of inferior/inferoseptal/inferolateral wall motion abnormalities which have been noted on previous imaging as well. 4. Hypertension: Blood pressure mildly hypotensive to normotensive. Continue current regimen. Has had symptomatic hypotension in the past which required reduction in carvedilol and KENISHA-inhibitor and eventually replace carvedilol with low-dose metoprolol. 5. Dyslipidemia: LDL has been well controlled. Continue high-intensity statin therapy. 6. Aortic and mitral regurgitation: Remain mild. Can monitor as an outpatient. 7. Disposition: He states that he is going home today. Discussed the fact that he is not euvolemic and would like to further improve before leaving. He is adamant about leaving. Home diuretic regimen discussed with primary hospitalist. Follow-up in the cardiology office in approximately 1 week. Patient care discussed with primary hospitalist service, Dr. Hughes. Admission and Anticipated Discharge Date Admission Date: May 19, 2022 Subjective Patient seen this morning. Dyspnea with exertion has improved. He still has some mild dyspnea with exertion. He states that he is going home today and does not want to stay another night in the hospital. He denies chest pain, shortness of breath at rest, orthopnea, syncope, near-syncope, palpitations, or bleeding. He was alone in his hospital room. Review of systems: As above. Physical Exam Physical Exam: Gen.: No acute distress. Alert and oriented. HEENT: Anicteric sclera. Neck: Thick neck. Elevated JVD (improving). Hepatic jugular reflux noted. Cardiac: PMI was nonpalpable. No ventricular heave. Regular. No ectopy. Normal S1-S2. No audible murmur. No rubs or gallops. Pulmonary: Bibasilar rales (chronic and stable). Abdomen: Obese. Soft, nontender, nondistended, with normoactive bowel sounds. No bruits noted. Extremities: 1+ right radial pulse. 2+ left radial pulse. 2+ posterior tibialis pulses bilaterally. 2+ bilateral lower extremity edema to the knees. No cyanosis. Psychiatric: Affect appears appropriate. Results & Data ([facility]) Vital Signs (Past 12 Hours) Vital Signs Temp Pulse Pulse Resp BP Pulse Ox O2 Del Method 05/21/22 08:00 Room Air 05/21/22 07:38 36.5 C 75 18 106/63 92 Room Air 05/21/22 04:13 36.4 C L 72 18 104/65 96 Room Air 05/21/22 01:28 86 05/20/22 23:40 36.4 C L 87 20 97/60 L 94 Room Air Intake & Output 05/19/22 05/20/22 05/21/22 05/22/22 06:59 06:59 06:59 06:59 Intake Total 109 / 109 589 / 589 59 / 59 Output Total 400 / 400 1900 / 1900 Balance -291 / -291 -1311 / -1311 59 / 59 Weight 293 lb 6.964 oz 279 lb 15.793 oz Laboratory Results Laboratory Results - last 24 hr 05/21/22 05/21/22 05/21/22 07: 07: 10:21 WBC 15.99 H RBC 4.52 L Hgb 12.8 L Hct 39.6 L MCV 87.6 MCH 28.3 MCHC 32.3 RDW Std Deviation 54.8 H RDW Coeff of [place] 17.7 H Plt Count 321 MPV 9.3 L Immature Gran % (Auto) 0.4 Neut % (Auto) 67.3 Lymph % (Auto) 20.5 [place] % (Auto) 10.6 Eos % (Auto) 0.8 Baso % (Auto) 0.4 Neut # (Auto) 10.76 H Lymph # (Auto) 3.27 [place] # (Auto) 1.69 H Eos # (Auto) 0.13 Baso # (Auto) 0.07 Immature Gran # (Auto) 0.07 H Sodium TNP 140 Potassium TNP 3.5 Chloride 99 Carbon Dioxide 29 Anion Gap TNP BUN 35 H Creatinine 1.25 Est Cr Clr Drug Dosing 65.1 Est GFR ( Amer) 63.1 Est GFR (Non-Af Amer) 54.4 BUN/Creatinine Ratio 28.0 H Glucose 102 H Calcium 9.2 Magnesium TNP 2.2 Procalcitonin 05/21/22 11:35 WBC RBC Hgb Hct MCV MCH MCHC RDW Std Deviation RDW Coeff of [place] Plt Count MPV Immature Gran % (Auto) Neut % (Auto) Lymph % (Auto) [place] % (Auto) Eos % (Auto) Baso % (Auto) Neut # (Auto) Lymph # (Auto) [place] # (Auto) Eos # (Auto) Baso # (Auto) Immature Gran # (Auto) Sodium Potassium Chloride Carbon Dioxide Anion Gap BUN Creatinine Est Cr Clr Drug Dosing Est GFR ( Amer) Est GFR (Non-Af Amer) BUN/Creatinine Ratio Glucose Calcium Magnesium Procalcitonin Pending Diagnostic Findings Sinus rhythm. No arrhythmia. Medications Administered Current Inpatient Medications Acetaminophen (Acetaminophen 325 Mg Tab) 650 mg PO Q4H PRN PRN Reason: Pain or Fever Stop: 06/18/22 13:07 Last Admin: 05/20/22 23:40 Dose: 650 mg Al Hydrox/Mg Hydrox/Simethicone (Aluminum/Magnesium Susp 30 Ml Udc) 15 ml PO Q4H PRN PRN Reason: Dyspepsia Stop: 06/18/22 13:07 Allopurinol (Allopurinol 300 Mg Tab) 300 mg PO DAILY [facility] Stop: 06/19/22 08:59 Last Admin: 05/21/22 08:32 Dose: 300 mg Apixaban (Apixaban 5 Mg Tablet) 5 mg PO BID ANTONI Stop: 06/18/22 20:59 Last Admin: 05/21/22 08:32 Dose: 5 mg Aspirin (Aspirin 81 Mg Ectab) 81 mg PO DAILY ANTONI Stop: 06/19/22 08:59 Last Admin: 05/21/22 08:32 Dose: 81 mg Atorvastatin Calcium (Atorvastatin 40 Mg Tab) 40 mg PO DAILY ANTONI Stop: 06/19/22 08:59 Last Admin: 05/21/22 08:33 Dose: 40 mg Finasteride (Finasteride 5 Mg Tab) 5 mg PO QPM ANTONI Stop: 06/18/22 21:19 Last Admin: 05/20/22 20:02 Dose: 5 mg Bumetanide 4 mg/ Syringe 16 mls @ 4 mls/min IV BID@0900,1700 ANTONI Stop: 06/18/22 16:59 Last Admin: 05/21/22 08:32 Dose: 4 mls/min Chlorothiazide Sodium 250 mg/ (Dextrose) 59 mls @ 200 mls/hr IV QAM ANTONI Stop: 06/19/22 08:59 Last Infusion: 05/21/22 09:00 Dose: Infused Isosorbide Mononitrate (Isosorbide [place] Extended Rel 30 Mg Tabcr) 30 mg PO DAILY ANTONI Stop: 06/19/22 08:59 Last Admin: 05/21/22 08:32 Dose: 30 mg Lisinopril (Lisinopril 5 Mg Tab) 5 mg PO DAILY ANTONI Stop: 06/19/22 08:59 Last Admin: 05/21/22 08:32 Dose: 5 mg Magnesium Hydroxide (Magnesium Hydroxide Susp 30 Ml Udc) 30 ml PO Q12H PRN PRN Reason: Constipation Stop: 06/18/22 13:07 Metoprolol Succinate (Metoprolol Succ 25mg Ext Rel Tab) 25 mg PO HS ANTONI Stop: 06/18/22 20:59 Last Admin: 05/20/22 20:02 Dose: 25 mg Ondansetron HCl (Ondansetron Inj 2 Mg/Ml 2 Ml Vial) 4 mg IV Q6H PRN PRN Reason: Nausea Stop: 06/18/22 13:07 Polyethylene Glycol (Polyethylene (Miralax) 17 Gm Pack) 17 gm PO DAILY PRN PRN Reason: Constipation Stop: 06/18/22 13:07 Last Admin: 05/21/22 08:56 Dose: 17 gm Potassium Chloride (Potassium Chloride Crtab 20 Meq Tabcr) 20 meq PO DAILY ANTONI Stop: 06/19/22 08:59 Last Admin: 05/21/22 08:36 Dose: 20 meq Tamsulosin HCl (Tamsulosin Hcl 0.4 Mg Cap) 0.4 mg PO HS ANTONI Stop: 06/18/22 20:59 Last Admin: 05/20/22 20:02 Dose: 0.4 mg Terbinafine HCl (Terbinafine Hcl 250 Mg Tab) 250 mg PO DAILY ANTONI Stop: 06/19/22 08:59 Last Admin: 05/21/22 08:33 Dose: 250 mg PG Care Time/CCT Total # of Minutes Spent Total Time Spent with Patient: Total time spent is greater than 50% in coordination of care (as documented) at patient's floor/unit and/or counseling patient: Coding Level of Care Code 16941 Subseq Hosp Care Lvl 3 Diagnoses Acute on chronic heart failure with preserved ejection fraction (HFpEF) I50.33 CAD (coronary artery disease) I25.10 Ischemic cardiomyopathy I25.5 Hypertension I10 Dyslipidemia E78.5 Mitral regurgitation I34.0 Aortic insufficiency I35.1
--- NOTE | 2022-05-21 11:05 | Hospitalist Progress Note ---
Date of Service May 21, 2022 Assessment & Plan (1) Chronic diastolic CHF (congestive heart failure): (2) Hypertension: (3) Dyslipidemia: (4) CAD (coronary artery disease): (5) DVT (deep venous thrombosis): (6) Anemia: (7) Leukocytosis: (8) Fungal infection of foot: Plan per admitting service notes with addendum: Mr. Leeroy Pickett is a 77 year old male who presented to the [facility] ED from home after discussion regarding admission at his outpatient Cardiology ap pointment yesterday (May 18) with Dr. Diaz. This individual has acute on chronic CHF and has not been clinically responding to his outpatient diuretic regimen as noted by his significant edema and weight gain. acute on chronic dystolic CHF with preserved EF: -Patient primarily seen as an outpatient. Had an appointment yesterday with Dr. Diaz and was noted to be hypervolemic. -+ 3 B/L LE edema -Last ECHO 02/18 EF 50%, mild MR/TR -mild pulmonary edema on CXR -Typical home regiment includes PO Bumex with intermittent PO Lasix in addition to that. -One time dose of Diuril IV 250 mg per OPT Cards recommendation -Bumex 4mg IV Once post Diuril infusion; followed by Bumex 4mg IV BID -Heart healthy diet with low Na+ -Check daily weights -Strict I/O; goal is 1-2L negative net fluid over next 24 hours. -Discussed with Dr. Santiago who agrees with above orders and is aware of consultation being placed. -Pt stated he would consider being evaluated and followed by the CHF clinic. Consider consult during this admission. 05/21: no shortness of breath on room air still has grade 2 lower extremity edema given Bumex 4mg IV BID Cholorothiazide 250mg IV daily appreciate Cardiology service input patient adamant on being discharged today despite being advised to stay longer for IV diuretics per Dr. Diaz, discharge on: Bumex 4mg BID Chlorothiazie 125mg PO // Hypertension: -Continue Metoprolol with hold parameters Dyslipidemia: -Continue Atorvastatin CAD: -Previous RI DVT: -02/05/2021 admission at [facility] for PE/DVT -Eliquis started during that admission for chronic VTE prophylaxis Leukocytosis: -WBC: 11.91 -UA pending -no tachycardia or other signs of sepsis -CXR did reveal pulmonary effusions; likely fluid related. 05/21 afebrile CXR: questionable left lower lobe pneumonia vs. atelectasis- patient denies cough UA: no UTI no focus of infection identified Fungal Infection of foot: -bilateral foot fungal infection. Continue prescribed Terbinafine 250mg PO daily which is scheduled to continue treatment through 06/23/22 Anemia: -Appears stable Current 11.3 --> 12.8 Disposition: Pt PCP: Dr. Mcgill Full code as discussed with patient d/c home with home health PCP in 1 week Elevator Dispatcher in 1 week plan of care discussed with patient in detail and at length all questions answered he is understanding, agreeable, comfortable with the plan of care Admission and Anticipated Discharge Date Admission Date: May 19, 2022 Subjective ff up for acute on chronic CHF, etc seen sitting up in bed, comfortable states he feels better overall no chest pain, dyspnea, palpitations, dizziness no leg pain patient adamant that he is leaving today- 'i cannot get more than 3 hours of sleep in here' explained that he still needs IV diuretics, but patient still would like to be discharged explained risks of leaving earlier than Cardiology recommendation, patient understanding advised to return to ER immediately if with worsening of symptoms Review of Systems Review of Systems: all noted and negative except for above Physical Exam Physical Exam: General- oriented x 3, not in distress, speaks in sentences with no effort or accessory muscle use Eyes- anicteric Neck- no JVD Lungs- clear BS bilaterally, no rales/wheezes Heart- normal rate, regular rhythm; no murmurs Abdomen- normal bowel sounds, nondistended, soft, nontender Extremities- grade 2 lower leg edema, no calf tenderness Neuro- alert, oriented x 3; no gross focal neurologic deficits Skin- warm & dry Results & Data Results & Data ([facility]) Vital Signs (Past 12 Hours) Vital Signs Temp Pulse Pulse Resp BP Pulse Ox O2 Del Method 05/21/22 08:00 Room Air 05/21/22 07:38 36.5 C 75 18 106/63 92 Room Air 05/21/22 04:13 36.4 C L 72 18 104/65 96 Room Air 05/21/22 01:28 86 05/20/22 23:40 36.4 C L 87 20 97/60 L 94 Room Air all noted and reviewed including below
[2022-05-21 11:11] LABS: Magnesium 2.2 mg/dl (1.7-2.4); Potassium 3.5 mmol/L (3.5-5.1)
--- NOTE | 2022-05-21 17:58 | Discharge Summary ---
Date of Service May 21, 2022 Admission HPI Per Admitting Provider Mr. Leeroy Pickett is a 77 year old male who presented to the [facility] ED from home after discussion regarding admission at his outpatient Cardiology appointment yesterday (May 18) with Dr. Diaz. This individual has acute on chronic CHF and has not been clinically responding to his outpatient diuretic regimen as noted by his significant edema and weight gain. Per review of his medication list, he is on high-dose Bumex and PRN Lasix 20 mg on top of that. Additional PMH includes: CAD s/p AMI, ischemic cardiomyopathy, HTN, HLD, BPH, DVT/PE in 01/2021 where he was admitted at [facility] leading to initiation of Eliquis. His most recent ECHO revealed EF of 50-59% with mild MR/TR. Pt presenting today to move ahead with hospital admission. During my encounter, patient he was accompanied by his , Pratibha and his son as well. The patient is resting in his bed, sitting upright in no apparent distress. He denies [place], dizziness, SOB at rest, CP, palpitations, N/V/D, falls. The patient did indicate that while he does not feel winded at rest, he would be considerably short of breath walking from his bed to the door. A chest X-ray was obtained and results indicated: mild pulmonary edema and trace bilateral pleural effusions. The patient is also being treated for a bilateral foot fungal infection with Terbinafine 250mg PO daily and is scheduled to continue treatment through 06/23/22. The patient lives with his in a one story ranch house and per the patient and his he is able to perform IADL's. The patient will be admitted for IV diuresis and closer laboratory monitoring. Please see A/P for further details regarding his admission. Admission Exam Per Admitting Provider Constitutional: well developed, + obese, cooperative and comfortable; no altered mental status ENMT: Ears: + hearing impairment (Uses hearing aids B/L) Nose: + dry nasal mucous membranes Respiratory: normal respiratory effort; does not use accessory muscles and no cough Auscultation: + diminished lung sounds Cardiovascular: Rate/Rhythm: regular rate and regular rhythm Heart Sounds: normal S1 and normal S2 Vessels: + JVD Extremities: + edema (B/L LE +3 ) Gastrointestinal (Abdomen): Inspection/Auscultation: abdomen normal to inspection, + abdomen distended and normal bowel sounds Skin: + erythema and + pallor Pt has fungal i nfection on his feet Psychiatric: Orientation: alert and oriented x 3 Insight: good insight Judgement: good judgement Genitourinary: no CVA tenderness Principal Diagnosis ACUTE ON CHRONIC CONGESTIVE HEART FAILURE Discharge Exam General- oriented x 3, not in distress, speaks in sentences with no effort or accessory muscle use Eyes- anicteric Neck- no JVD Lungs- clear BS bilaterally, no rales/wheezes Heart- normal rate, regular rhythm; no murmurs Abdomen- normal bowel sounds, nondistended, soft, nontender Extremities- grade 2 lower leg edema, no calf tenderness Neuro- alert, oriented x 3; no gross focal neurologic deficits Skin- warm & dry Discharge Data Allergies Allergy/AdvReac Type Severity Reaction Status Date / Time No Known Drug Allergies Allergy Verified 05/18/22 11:20 Consultations 05/19/22 10:38 ED Decision to Admit Stat 05/19/22 12:32 Consult Cardiology Routine Hospital Course (1) Chronic diastolic CHF (congestive heart failure): (2) Hypertension: (3) Dyslipidemia: (4) CAD (coronary artery disease): (5) DVT (deep venous thrombosis): (6) Anemia: (7) Leukocytosis: (8) Fungal infection of foot: Plan per admitting service notes with addendum: Mr. Leeroy Pickett is a 77 year old male who presented to the [facility] ED from home after discussion regarding admission at his outpatient Cardiology appointment yesterday (May 18) with Dr. Diaz. This individual has acute on chronic CHF and has not been clinically responding to his outpatient diuretic regimen as noted by his significant edema and weight gain. acute on chronic dystolic CHF with preserved EF: -Patient primarily seen as an outpatient. Had an appointment yesterday with Dr. Diaz and was noted to be hypervolemic. -+ 3 B/L LE edema -Last ECHO 02/18 EF 50%, mild MR/TR -mild pulmonary edema on CXR -Typical home regiment includes PO Bumex with intermittent PO Lasix in addition to that. -One time dose of Diuril IV 250 mg per OPT Cards recommendation -Bumex 4mg IV Once post Diuril infusion; followed by Bumex 4mg IV BID -Heart healthy diet with low Na+ -Check daily weights -Strict I/O; goal is 1-2L negative net fluid over next 24 hours. -Discussed with Dr. Santiago who agrees with above orders and is aware of consultation being placed. -Pt stated he would consider being evaluated and followed by the CHF clinic. Consider consult during this admission. 05/21: no shortness of breath on room air still has grade 2 lower extremity edema given Bumex 4mg IV BID Cholorothiazide 250mg IV daily appreciate Cardiology service input patient adamant on being discharged today despite being advised to stay longer for IV diuretics consequences presented including high likelihood of readmission, shortness of breath, etc patient verbalized understanding and agreement family at bedside per Dr. Diaz, discharge on: Bumex 4mg BID Chlorothiazide 125mg PO 3x a week // ff up with Cardiology clinic in 1 week Hypertension: -Continue Metoprolol with hold parameters Dyslipidemia: -Continue Atorvastatin CAD: -Previous CT DVT: -02/05/2021 admission at [facility] for PE/DVT -Eliquis started during that admission for chronic VTE prophylaxis Leukocytosis: -WBC: 11.91 -UA pending -no tachycardia or other signs of sepsis -CXR did reveal pulmonary effusions; likely fluid related. 05/21 afebrile CXR: questionable left lower lobe pneumonia vs. atelectasis- patient denies cough UA: no UTI no focus of infection identified Fungal Infection of foot: -bilateral foot fungal infection. Continue prescribed Terbinafine 250mg PO daily which is scheduled to continue treatment through 06/23/22 Anemia: -Appears stable Current 11.3 --> 12.8 Disposition: Pt PCP: Dr. Mcgill Full code as discussed with patient d/c home with home health PCP in 1 week Landscape Crew Member in 1 week plan of care discussed with patient in detail and at length all questions answered he is understanding, agreeable, comfortable with the plan of care Total Time Total Time Spent Total Time Spent (In Minutes): >30 minutes Discharge Plan Discharge Items Patient Disposition: Home - Home Health Services Reason For Visit: ADMISSION/CHF Discharge Diagnosis: ACUTE ON CHRONIC CONGESTIVE HEART FAILURE EXACERBATION Activity: As commented below Activity Comment: GRADUALLY INCREASE TOLERATED Lifting: Wait until after follow-up appointment Exercise/Sports: Wait until after follow-up appointment Driving/Machine Use: NO DRIVING Non-emergency contact: Primary Care Provider and Landscape Crew Member Call non-emergency contact if: you have any medication questions, your symptoms worsen, your pain is not controlled, your pain is worsening, your pain is unusual for you, your pain is concerning for you and you have a fever Follow-up/Referrals: Rafael Diaz MD [Physician] - Elan Mcgill MD [Primary Care Provider] - Diet: Heart Healthy and Low Sodium (2gm) Fluids: 1500ml (6 cups) Addtl Attending Provider Instructions: PLEASE REFER TO YOUR NEW MEDICATION LIST AND FOLLOW INSTRUCTIONS CAREFULLY. YOUR NEW MEDICATIONS INCLUDE: CHLOROTHIAZIDE- diuretic for congestive heart failure, to prevent fluid overload PLEASE CALL YOUR PRIMARY CARE PHYSICIAN OR RETURN TO THE ER IF WITH WORSENING OF SYMPTOMS, INCLUDING SHORTNESS OF BREATH, WORSENING OF LEG SWELLING, FEVER/CHILLS, WEAKNESS, ETC FOLLOW UP WITH PRIMARY CARE PHYSICIAN IN 1 WEEK. FOLLOW UP WITH HOUSE CARPENTER IN 1 WEEK. PLEASE CALL THEIR OFFICE FOR AN APPOINTMENT. Pending Studies at Discharge: No Stand-Alone Forms: [facility], Smoking Cessation Medications and DC Order Prescriptions: New Diuril 250 mg/5 mL suspension 125 mg PO UD Qty: 237 2RF Rx Instructions: TAKE 125 MG (2.5 ML) 3 TIMES A WEEK (MON-WED-FRI) Continued lisinopril 5 mg tablet 5 mg PO DAILY Qty: 90 3RF isosorbide mononitrate 30 mg tablet extended release 24 hr 30 mg PO DAILY Qty: 90 3RF atorvastatin 40 mg tablet 40 mg PO DAILY Qty: 90 3RF metoprolol succinate 25 mg tablet extended release 24 hr 25 mg PO DAILY Qty: 90 3RF potassium chloride 20 mEq tablet extended release 20 meq PO DAILY Qty: 90 3RF metolazone 2.5 mg tablet 2.5 mg PO DAILY PRN (Reason: weight gain, increased swelling, short of breath) Qty: 15 2RF Eliquis 5 mg tablet 5 mg PO BID tamsulosin [Flomax] 0.4 mg capsule 0.4 mg PO DAILY aspirin 81 mg tablet 81 mg PO DAILY finasteride 5 mg tablet 5 mg PO QPM lactulose 10 gram/15 mL solution 15 ml PO BID allopurinol 300 mg tablet 300 mg PO DAILY terbinafine HCl 250 mg tablet 250 mg PO DAILY Label Comments: For 12 weeks bumetanide 2 mg tablet 4 mg PO BID Admission Data Admit Date/Time: 05/19/22 11:47 Attending Provider: Adrien Hughes Admit Provider: Jeferson Sheffield Primary Care Provider: Elan Mcgill Other Providers: Martin Santiago ; Jeferson Sheffield
== END 2022-05-21 18:43 | disposition home health service (06) | DRG 291 ==
LOC: ED 09:20 → SUATTDRO 11:47 → EDINP 11:47 → 2S 13:35